=== PATIENT | female | born 1995 | race Asian ===

== ENCOUNTER 2017-06-22 10:12 | Emergency (ER) | payer OTHER ==
[~2017-06-22] VITALS: Ht 170.2 cm; Wt 77.3 kg
[2017-06-22 10:14] VITALS: BP 128/73; TEMP 98.7
[2017-06-22 11:01] LABS: HEMOGLOBIN 12.2 g/dl (12.0-15.0); MEAN CELL VOLUME 89 fl (80.0-95.0); MEAN CORPUSCULAR HEMOGLOBIN 30 pg (26.0-32.0); MEAN CORPUSCULAR HGB CONC 34 g/dl (33.0-37.0); MEAN PLATELET VOLUME 9.4 fl (7.4-10.4); PLATELET COUNT 229 K/mm3 (130-400); RED BLOOD COUNT 4.09 M/mm3 (4.10-5.30); REDCELL DISTRIBUTION WIDTH-CV 11.9 % (11.5-14.5)
[2017-06-22 11:02] LABS: HEMATOCRIT 36.2 % (35.0-45.0)
[2017-06-22 11:13] LABS: C-REACTIVE PROTEIN 2.2 mg/dL (0.0-0.9); CREATININE, serum 0.63 mg/dL (0.52-1.25); POTASSIUM 4.1 mmol/L (3.4-5.0)
[2017-06-22 11:34] LABS: BAND 21 % (0-10); LYMPHOCYTE 40 % (20.0-51.0); NEUTROPHILS 37 % (42.0-75.2); PLATELET ESTIMATE NORMAL (NORMAL)
[2017-06-22] MEDS ORDERED: AMOXICILLIN 8751 TAB PO (11:57)
[2017-06-22 12:15] VITALS: PULSE 64
[2017-06-25 08:16] LABS: MUMPS AB IgG INDEX 3.6 (()); MUMPS VIRUS ANTIBODY,IGG Positive (())
[2017-06-27 13:16] LABS: MUMPS AB IgM INDEX 0.12 (())
== END 2017-06-22 12:16 | disposition home or self-care (01) ==
LOC: COL.ER 10:12
PROVIDERS: Nurse Practitioner
DX: R59.0 Localized enlarged lymph nodes (principal)